=== PATIENT | female | born 1970 | race Caucasian/White ===

== ENCOUNTER 2021-10-12 09:31 | Day surgery (SDC) | payer BC ==
[2021-10-12] MEDS ORDERED: BUPIVACAINE 0.5% VIAL IJ ONE (09:32)
[2021-10-12] MEDS ORDERED: Depo-Medrol 40 MG/ML IM ONE (09:32)
[2021-10-12] MEDS ORDERED: DIPRIVAN 200 MG/20 ML IV ONE (11:14)
[2021-10-12] MEDS ORDERED: Lactated Ringers 1,000 ML IV ONE (12:14)
--- NOTE | 2021-10-12 13:04 | XRAY ---
Indication: Left knee injection. Intraoperative fluoroscopy provided for 15 seconds. Single digital spot image submitted for interpretation demonstrate needle tip projecting over the left femur intercondylar notch. Small amount of contrast injected for needle tip placement. Correlate with intraoperative findings/report.
--- NOTE | 2021-10-12 13:11 | XRAY ---
15 seconds of fluoroscopy was used in surgery for a left intra-articular knee injection.
== END 2021-10-12 11:37 | disposition home or self-care (01) ==
LOC: SDC-PAIN 09:31
PROVIDERS: ATTEND Psychiatry & Neurology Pain Medicine
DX: M17.12 Unilateral primary osteoarthritis, left knee (principal); E11.9 Type 2 diabetes mellitus without complications; Z79.899 Other long term (current) drug therapy
CPT/HCPCS: 20610; 73560; 77002; 82947; J1030; J2704; Q9966

== ENCOUNTER 2021-12-14 07:57 | Day surgery (SDC) | payer BC, OTHER ==
[2021-12-14] MEDS ORDERED: Depo-Medrol 40 MG/ML IM ONE (07:58)
[2021-12-14] MEDS ORDERED: Sodium Chloride 0.9(Preservative Free) 10 ML IJ ONE (07:58)
[2021-12-14] MEDS ORDERED: DIPRIVAN 200 MG/20 ML IV ONE (09:12)
[2021-12-14] MEDS ORDERED: Lactated Ringers 1,000 ML IV ONE (09:21)
--- NOTE | 2021-12-14 10:14 | XRAY ---
Indication: Right L4-S1 transforaminal LOUISA. Intraoperative fluoroscopy provided for 44 seconds. 4 digital spot images submitted for interpretation demonstrates posterior needle tips projecting over the expected right L4 and L5 nerve roots. Small amount of contrast injected for needle tip placement. Correlate with intraoperative findings/report.
--- NOTE | 2021-12-14 11:36 | XRAY ---
44 seconds fluoroscopy time in surgery for right L4-S1 transforaminal LOUISA.
== END 2021-12-14 09:38 | disposition home or self-care (01) ==
LOC: SDC-PAIN 07:57
PROVIDERS: ATTEND Psychiatry & Neurology Pain Medicine
DX: M47.816 Spondylosis without myelopathy or radiculopathy, lumbar region (principal); E11.9 Type 2 diabetes mellitus without complications; Z79.899 Other long term (current) drug therapy
CPT/HCPCS: 64483; 64484; 72100; 77003; 82947; J1030; J2704; Q9966

== ENCOUNTER 2022-11-08 06:53 | Day surgery (SDC) | payer MEDICARE ==
[2022-11-08] MEDS ORDERED: Sodium Chloride 0.9(Preservative Free) 10 ML IJ ONE (06:54)
[2022-11-08] MEDS ORDERED: Depo-Medrol 40 MG/ML IM ONE (06:54)
[2022-11-08] MEDS ORDERED: DIPRIVAN 200 MG/20 ML IV ONE (08:27)
[2022-11-08] MEDS ORDERED: Lactated Ringers 1,000 ML IV ONE (08:54)
--- NOTE | 2022-11-08 09:32 | XRAY ---
Indication: Right L4-S1 transforaminal LOUISA. Intraoperative fluoroscopy provided for 30 seconds. 5 digital spot image submitted for interpretation demonstrate posterior needle tips projecting over the expected right L4 and L5 nerve roots. Small amount of contrast injected for needle tip placement. Correlate with intraoperative findings/report.
--- NOTE | 2022-11-08 09:32 | XRAY ---
30 seconds of fluoroscopy was used in surgery for a right L4-S1 transforaminal LOUISA.
== END 2022-11-08 09:00 | disposition home or self-care (01) ==
LOC: SDC-PAIN 06:53
PROVIDERS: ATTEND Psychiatry & Neurology Pain Medicine
DX: M54.16 Radiculopathy, lumbar region (principal); E11.9 Type 2 diabetes mellitus without complications; Z79.899 Other long term (current) drug therapy
CPT/HCPCS: 64483; 64484; 72100; 77003; 82947; J1030; J2704; Q9966

== ENCOUNTER 2023-07-04 09:37 | Day surgery (SDC) | payer MEDICARE ==
[2023-07-04] MEDS ORDERED: Sodium Chloride 0.9(Preservative Free) 10 ML IJ ONE (09:38)
[2023-07-04] MEDS ORDERED: Depo-Medrol 40 MG/ML IM ONE (09:38)
[2023-07-04] MEDS ORDERED: DIPRIVAN 200 MG/20 ML IV ONE (11:22)
[2023-07-04] MEDS ORDERED: Versed 2 MG/2 ML Injection ONE (11:22)
[2023-07-04] MEDS ORDERED: MORPHINE SULFATE 2 MG INJ ONE ×2 (11:42→12:00)
--- NOTE | 2023-07-04 13:04 | XRAY ---
Indication: Right L4-S1 transforaminal LOUISA. Intraoperative fluoroscopy provided for 45 seconds. 5 digital spot image submitted for interpretation demonstrates posterior needle tips projecting over the expected right L4 and L5 nerve roots. Small amount of contrast injected for needle tip placement. Correlate with intraoperative findings/report.
--- NOTE | 2023-07-04 13:06 | XRAY ---
45 seconds of fluoroscopy was used in surgery for a right L4-S1 transforaminal LOUISA.
[2023-07-04] MEDS ORDERED: Lactated Ringers 1,000 ML IV ONE (14:33)
== END 2023-07-04 12:25 | disposition home or self-care (01) ==
LOC: SDC-PAIN 09:37
PROVIDERS: ATTEND Psychiatry & Neurology Pain Medicine
DX: M54.16 Radiculopathy, lumbar region (principal); E11.9 Type 2 diabetes mellitus without complications; Z79.899 Other long term (current) drug therapy
CPT/HCPCS: 64483; 64484; 72100; 77003; 82947; J1030; J2250; J2270; J2704; Q9966